=== PATIENT | female | born 2005 | race Caucasian/White ===

== ENCOUNTER 2024-03-14 18:36 | Emergency (ER) | payer MEDICAID ==
[2024-03-14 19:27] LABS: HEMATOCRIT 39.9 % (37.0-47.0); HEMOGLOBIN 13.5 gm/dl (12.0-16.0)
== END 2024-03-14 20:24 | disposition left against medical advice (07) ==
LOC: JD.ED 18:36
DX: R10.9 Unspecified abdominal pain (principal); Z53.29 Procedure and treatment not carried out because of patient's decision for other reasons; J45.909 Unspecified asthma, uncomplicated
CPT/HCPCS: 36415; 76830; 76830-26; 84702; 85014; 85018; 99281; 99284